=== PATIENT | female | born 1990 | race Asian ===

== ENCOUNTER 2023-02-14 06:18 | Outpatient (CLI) | payer OTHER ==
[~2023-02-14] VITALS: Ht 167.6 cm; Wt 95.5 kg
--- NOTE | 2023-02-14 06:30 | NUR ---
Pt arrived on unit with concerns for contractions since 2300 last night. Pt reports the contractions have been every 6-8 minutes since last night, denies any leaking of fluid or vagina bleeding and reports normal movement. EFM and toco monitors started. Vital signs WNL. SVE by this RN /-2. Plan of care for labor assessment reviewed with pt and at the bedside. Both verbalized an understanding and agreed with the plan.
[2023-02-14] MEDS ORDERED: LEXAPRO 10MG10 MG PO (07:03)
[2023-02-14 07:30] VITALS: BP 123/72; PULSE 112; TEMP 97.9
--- NOTE | 2023-02-14 08:10 | NUR ---
SVE by this RN with no change. Dr. Manzo on the unit. FHR tracing and history reviewed. Orders for discharge home received.
[2023-02-14] MEDS ORDERED: LR 1,000 ML IV PRN (08:30)
== END 2023-02-14 08:30 | disposition home or self-care (01) ==
LOC: LDRO 06:18 → LDR 08:19 → LDRO 08:30
DX: Z34.90 Encounter for supervision of normal pregnancy, unspecified, unspecified trimester (principal); Z3A.40 40 weeks gestation of pregnancy
CPT/HCPCS: OP

== ENCOUNTER 2023-02-20 04:58 | Inpatient (IN) | payer OTHER ==
[~2023-02-20] VITALS: Ht 167.6 cm; Wt 95.5 kg
[2023-02-20] VITALS (35 sets, daily range): BP systolic 96–147; BP diastolic 51–86; PULSE 64–100; TEMP 97.6–98.9
[~2023-02-20 04:58] MED LIST: LEXAPRO 10MG10 MG PO
--- NOTE | 2023-02-20 05:00 | NUR ---
PATIENT ARRIVED TO UNIT VIA WHEELCHAIR WITH . PATIENT STATES SHE THOUGHT HER WATER BROKE AROUND 0330 AND CONTRACTIONS ARE ABOUT 3 MINUTES APART, DENIES VAGINAL BLEEDING. PATIENT CHANGED INTO HOSPITAL GOWN. SVE NOTED. AMNIOTRACE NEGATIVE.
[2023-02-20 07:52] LABS: BASO % 0.2 % (0.0-2.0); EOS # 0.2 K/mm3 (0.0-0.7); EOS % 1.4 % (0.0-4.0); GRAN # 9.5 K/mm3 (1.4-6.5); HEMOGLOBIN 10.7 g/dl (12.5-16.0); LYMPH # 2.7 K/mm3 (1.2-3.4); LYMPH % 20.4 % (20.0-51.0); MEAN CELL VOLUME 81 fl (80.0-100.0); MEAN CORPUSCULAR HEMOGLOBIN 26 pg (27-31); MEAN CORPUSCULAR HGB CONC 32 g/dl (33.0-37.0); MEAN PLATELET VOLUME 11.4 fl (7.4-10.4); MONO # 0.7 K/mm3 (0.1-0.6); MONO % 5.3 % (1.7-9.3); PLATELET COUNT 254 K/mm3 (130-400); RED BLOOD COUNT 4.16 M/mm3 (4.10-5.30); REDCELL DISTRIBUTION WIDTH-CV 15.3 % (11.5-14.5)
[2023-02-20 07:55] LABS: HEMATOCRIT 33.8 % (37.0-47.0)
--- NOTE | 2023-02-20 08:30 | NUR ---
DR RAYA BEDSIDE.SVE /-2.AROM PERFORMED WITH NO FLUID RETURNED.PT TOLERATED PROCEDURE WELL.PT STATES,"MY WATER BROKE AROUND 0330 THIS MORNING".
--- NOTE | 2023-02-20 08:36 | NUR ---
PT SITTING UP ON THE SIDE OF THE BED FOR EPIDURAL PLACEMENT.LR BOLUS INFUSING PER PROTOCOL.MATERNAL VITAL SIGNS STABLE.EFM AND TOCO DIFFICULTY TRACING DUE TO MATERNAL POSITIONING. 0823 TEST DOSE ADMINISTERED PER KASSY LYNCH.PT TOLERATED PROCEDURE WELL.
[2023-02-20 10:28] LABS: TRICYCLIC ANTIDEPRESS URINE NEGATIVE
--- NOTE | 2023-02-20 15:36 | NUR ---
1249 THIS RN CALLED THE PT COMPLETE.PHYSICIAN NOTIFIED.ALL APPROPRIATE STAFF NOTIFIED.COMMENCES PRACTICE PUHSING WITH GOOD MATERNAL EFFORT. 1330 DR RAYA ARRIVES TO PUSH WITH THE PT.PHYSICAN ADVISED TO START PITOCIN AT 2MU.GOOD MATERNAL EFFORT MADE. 1349 VACUUM DELIVERY OF VIABLE MALE .STRONG CRY NOTED AT DELIVERY.CORD CLAMPED AND CUT BY MOTHER OF THE BABY.INFANT PLACED ON MATERNAL ABDOMEN. CARE ASSUMED BY NACHO DUMONT RN. 1355 OF INTACT PLACENTA.PITOCIN BOLUS INFUSING PER PROTOCOL.LIDOCAINE ADMINISTERED INTRADERMALLY PRIOR TO REPAIR OF 2ND DEGREE LACERATION.FUNDUS FIRM AT THE UMBILICUS WITH REPAIR.LOCHIA WITHIN NORMAL LIMITS.TOTAL QBL FOR CASE 500QBL. CORD GASES SENT TO LAB.CORD STAT SENT TO LAB DUE TO LATE CARE OF THE MOTHER.
--- NOTE | 2023-02-20 23:10 | NUR ---
MOTHER CALLED RN TO ROOM. PATIENT STATES SHE TAKES 10 MG LEXAPRO PO DAILY AND HAS NOT TAKEN IT YET THIS EVENING AND LAST TOOK IT YESTERDAY EVENING. THIS RN ASSESSED PT'S EMAR AND NOTED THAT LEXAPRO WAS ORDERED TO BE GIVEN STARTING 12 AT 0900. THIS RN INFORMED AND EDUCATED MOTHER ON THE ORDER. PT INSISTED ON TAKING LEXAPRO TONIGHT. DR. RAYA GAVE THIS RN AN VERBAL ORDER REPEAT TO GIVE THE LEXAPRO ONCE NOW. ORDER PLACED PER PROVIDER.
[2023-02-21 05:15] VITALS: BP 128/73; PULSE 71; TEMP 97.9
[2023-02-21 05:15] LABS: HEMOGLOBIN 8.9 g/dl (12.5-16.0)
[2023-02-21] MEDS ORDERED: IBU600 MG PO (06:44)
[2023-02-21 08:00] VITALS: BP 121/71; PULSE 78; TEMP 97.9
--- NOTE | 2023-02-21 10:44 | NUR ---
SW responded to referral. Nurse Zohreh reported no need originally "flagged" [place] however no concerns.
--- NOTE | 2023-02-21 13:43 | NUR ---
Zohreh called explaining pt's spouse requested social scientist. SW met with pt and . requested financial assistance. SW explained she would put in a referral and provided them with SW contact number for next week. SW provided community resource list. Pt denied any other need.
[2023-02-21 17:30] VITALS: BP 129/70; PULSE 86; TEMP 98
--- NOTE | 2023-02-21 17:31 | NUR ---
1700 FOB HERE WITH OTHER CHILD, CHILD RUNNING UP AND DOWN HALLWAY WITH NO SHOES OR SOCKS, OPENING OTHER PT'S DOORS. THIS NURSE AND SEVERAL OTHERS TOLD PARENTS CHILD MUST STAY IN THEIR DOOR. THIS NURSE AT BEDSIDE AND PUT HER HAND ON DOOR AND TOLD CHILD HE HAS TO STAY IN THE RM. CHILD SCREAMING, WANTING JUICE, THIS NURSE GOT HIM JUICE, 1530 FOB IS GONE HOME AND LEFT CHILD HERE AFTER THIS NURSE TOLD PARENTS COULD NOT LEAVE HERE. CHILD FOUND RUNNING IN HALLWAY MULTIPLE TIMES AND TAKEN BACK TO MOM'S ROOM.
== END 2023-02-21 19:00 | disposition home or self-care (01) | DRG 806 ==
LOC: LDRO 04:58 → LDR 05:04 → LDRO 08:24 → LDR 08:24 → OB 17:40
PROVIDERS: ADMIT Obstetrics & Gynecology
PROC: 10D07Z6 Extraction of Products of Conception, Vacuum, Via Natural or Artificial Opening (ICD-10-PCS; principal; 2023-02-20)
PROC: 0KQM0ZZ Repair Perineum Muscle, Open Approach (ICD-10-PCS; 2023-02-20)
DX: O48.0 Post-term pregnancy (principal); D62 Acute posthemorrhagic anemia; Z37.0 Single live birth; Z3A.40 40 weeks gestation of pregnancy; K21.9 Gastro-esophageal reflux disease without esophagitis; O99.62 Diseases of the digestive system complicating childbirth; O99.344 Other mental disorders complicating childbirth; F41.9 Anxiety disorder, unspecified; F32.A Depression, unspecified; O99.02 Anemia complicating childbirth; O34.13 Maternal care for benign tumor of corpus uteri, third trimester; D25.9 Leiomyoma of uterus, unspecified; K58.9 Irritable bowel syndrome, unspecified; O76 Abnormality in fetal heart rate and rhythm complicating labor and delivery; O70.1 Second degree perineal laceration during delivery; Z67.11 Type A blood, Rh negative; O26.893 Other specified pregnancy related conditions, third trimester; Z23 Encounter for immunization
CPT/HCPCS: J2791; J2795; J7120